=== PATIENT | female | born 1990 | race Two or more races ===

== ENCOUNTER 2021-06-06 10:52 | Day surgery (SDC) | payer OTHER | END 2021-06-06 22:10 | disposition home or self-care (01) | LOC: CIR.AMB 10:52 | PROVIDERS: ATTEND Student in an Organized Health Care Education/Training Program | DX: N82.3 Fistula of vagina to large intestine (principal); Z30.2 Encounter for sterilization; Z20.822 Contact with and (suspected) exposure to COVID-19 ==

== ENCOUNTER 2022-01-28 10:45 | Inpatient (IN) | payer OTHER ==
[~2022-01-28] VITALS: Ht 152.4 cm; Wt 56.7 kg
[2022-01-28] MEDS ORDERED: CLONAZEPAM0.25 MG PO (11:10)
[2022-02-03] MEDS ORDERED: FLUOXETINE HCL20 MG (11:25)
[2022-02-03] MEDS ORDERED: CLONAZEPAM0.5 MG (11:25)
[2022-02-05] MEDS ORDERED: CIPRO500 MG PO (13:46)
[2022-02-05] MEDS ORDERED: METRONIDAZOLE500 MG PO (13:47)
[2022-02-05] MEDS ORDERED: INTESTINEX680 M1 PO (13:48)
[2022-02-05] MEDS ORDERED: PERCOCET 5-3251 EACH PO (13:48)
[2022-02-05] MEDS ORDERED: NEURONTIN300 MG PO (13:49)
[2022-02-05] MEDS ORDERED: KETO10TA2 PO (13:50)
== END 2022-02-05 15:08 | disposition home or self-care (01) | DRG 989 ==
LOC: EDSTATUS 10:45 → SURH 02-02 06:14 → CIR.AMB 02-02 06:14 → EDSTATUS 02-02 10:45 → CIR.AMB 02-02 10:45 → OB/GYN 02-02 14:46 → SURH 02-02 14:48
PROVIDERS: ADMIT Surgery; ATTEND Surgery
PROC: 0UBG0ZZ Excision of Vagina, Open Approach (ICD-10-PCS; 2022-02-02)
PROC: 0DUR0JZ Supplement Anal Sphincter with Synthetic Substitute, Open Approach (ICD-10-PCS; 2022-02-02)
PROC: 0KQM0ZZ Repair Perineum Muscle, Open Approach (ICD-10-PCS; 2022-02-02)
PROC: 0DBP7ZZ Excision of Rectum, Via Natural or Artificial Opening (ICD-10-PCS; principal; 2022-02-02 11:00)
DX: N32.1 Vesicointestinal fistula (principal); R15.9 Full incontinence of feces; D28.1 Benign neoplasm of vagina; Z20.822 Contact with and (suspected) exposure to COVID-19